=== PATIENT | female | born 1995 | race Caucasian/White ===

== ENCOUNTER 2016-07-30 12:36 | Day surgery (SDC) | payer OTHER ==
[2016-07-30] VITALS (9 sets, daily range): BP systolic 104–127; BP diastolic 60–83; PULSE 67–117; RESP 13–21; O2SAT 97–100
[~2016-07-30] VITALS: Ht 160 cm; Wt 69.5 kg
[~2016-07-30 12:36] MED LIST: Lactated Ringer's 1,000 ML IV SCH
[2016-07-30] MEDS ORDERED: fentaNYL-PF 50 mCg/mL 2 mL Inj ONE ×2 (12:37→19:01)
[2016-07-30] MEDS ORDERED: Propofol 10,000 mCg/mL 20 mL Inj ONE (12:37)
[2016-07-30] MEDS ORDERED: Dexamethasone 4 mg/mL Inj ONE (12:37)
[2016-07-30] MEDS ORDERED: Ondansetron 2 mg/mL 2 mL Inj ONE (12:37)
[2016-07-30] MEDS ORDERED: Lactated Ringer's 1,000 ML IV ONE ×2 (13:30→19:36)
[2016-07-30] MEDS ORDERED: NO HOME MEDICATIONS (14:16)
[2016-07-30 14:25] LABS: BASOPHILS % (AUTO) 0.4 % (0-3); EOSINOPHILS % (AUTO) 2.1 % (0-5); MONOCYTES % (AUTO) 8.3 % (4-12); Mean Corpuscular Hemoglobin 31.6 pg (27.0-35.0); Mean Corpuscular Volume 92.2 fL (81-100); NEUTROPHILS % (AUTO) 45.7 % (40-74); Platelet Count 238 bil/L (150-400)
--- NOTE | 2016-07-30 17:03 | PCM.HPANE ---
Patient Data Surgeon Admitting Provider: Attending Provider:Carmela Gutiérrez MD Primary Care Physician:Facundo Tracy MD Other Provider:[facility] Reason for Visit Bartholin Cyst Ht/WT & BMI Height (Feet): 5 Height (Inches): 3 Weight (Kilograms): 69.5 Body Mass Index 27.00 Allergies Coded Allergies: No Known Allergies (Verified Allergy, Unknown, 07/30/16) Diabetes History Hx Diabetes?: No MRSA MRSA: No Medications Home Meds Incl Beta Desmond: No Reported Medications [No Home Medications] No Conflict Check 07/30/16 Discontinued Reported Medications Sertraline HCl (Sertraline)50 Mg [id number] Mg PO DAILY 30 Days Ref 0 01/03/15 History History of ENT Problems?: No Hx of Heart Problems?: No Cardiovascular History: Denies:: Congestive Heart Failure Hypertension Hx of Respiratory Problem?: No Respiratory History: Denies:: Tuberculosis Hx Neurologic Problems?: No Hx of GI Problems?: No Other Pertinent History: BARTHOLINS CYST ON THE LEFT SIDE Female Hx: Denies:: Currently Hx Musculoskeletal Problems?: No Musculoskeletal History: Positive for:: Musculoskeletal Trauma (RIGHT ARM FX, TOE FX) Hx Surgeries?: No Hx Any Other Health Problems?: No Other History: Denies:: Cancer Hx Diabetes: No Hx Alcohol Use: Yes (ON OCCASION)Hx Substance Use: Yes (DAILY WILL NOT DO THE DAY SURGERY) Smoking Status: Current Some Day Smoker Have You Smoked inLast 12 mo: No Stop/Bang S-Snoring: Do You Snore Loudly: No T-Tired: feel tired, fatigued: Yes O-Obsered: Observed not breath: No P-Blood Pressure: treated: No B- Body Mass Index > 35 kg/m2: No A- Age over 50: No N- Neck Large Circumference: No G- Gender Male: No KOKO Total Score: 1 KOKO Risk Assessment: Low Risk, <3 Yes Risk Assessment Category Category 1A: Patient has history of documented sleep apnea, and HAS NOT received any narcotic, sedative or anesthesia administration during this stay. Category 1B: Patient has history of documented sleep apnea, and HAS received any narcotic , sedative or anesthesia administration during this stay Category 2: Patient has SUSPECTED Obstructive Sleep Apnea, and HAS received any narcotic , sedative or anesthesia administration during this stay. Category 3: Patient has SUSPECTED Obstructive Sleep Apnea and HAS NOT received narcotic, sedative or anesthesia administration during this stay. Category 4: Outpatient in Procedural Areas with known sleep apnea or who screen positive for High Risk via the STOP/BANG questionnaire. Exam Exam Vital Signs Vital Signs Date Time Temp Pulse Resp B/P Pulse Ox O2 Delivery O2 Flow Rate FiO2 07/30/16 13:30 36.8 71 16 104/60 98 Room Air General Appearance: Alert, Oriented X3, Cooperative, No Acute Distress HEENT/AIRWAY: MP 2 Lungs: Clear to Auscultation, Normal Air Movement Heart: Exam Unremarkable, Regular Rate/Rhythm, No Murmurs/Rubs/Gallops Meds/Labs/Diagnostics Admission Meds Current Medications Lactated Ringer's (Lr) 1,000 ml @ ud STK-MED ONCE IV Last administered on 07/30t 13:30; Start 07/30/16 at 13:30; Stop 07/30/16 at 14:08; Status DC Labs Test 07/30/16 13:45 White Blood Count 7.7th/mm3 (3.8-10.1) Red Blood Count 4.24mil/mm3 (3.90-5.20) Hemoglobin 13.4g/dL (12.0-15.6) Hematocrit 39.1% (35.0-46.0) Mean Corpuscular Volume 92.2fL (81-100) Mean Corpuscular Hemoglobin 31.6pg (27.0-35.0) Mean Corpuscular Hemoglobin Concent 34.3% (32.0-37.0) Red Cell Distribution Width 12.3% (12.3-15.4) Platelet Count 238bil/L (150-400) Neutrophils (%) (Auto) 45.7% (40-74) Lymphocytes (%) (Auto) 43.5% (14-46) Monocytes (%) (Auto) 8.3% (4-12) Eosinophils (%) (Auto) 2.1% (0-5) Basophils (%) (Auto) 0.4% (0-3) Plan Impression Patient chart reviewed, patient interviewed and anesthestic plan with risks, benefits, and alternatives discussed, and informed consent obtained. NPO Status: 2200 ASA Physical Status: ASA1 Normal Healthy Bene/Risks/Altern/Consents: Yes HP Complete Prior to Induction: Yes Emiliano Adnrea MD Jul 30, 2016 17:03
[2016-07-30] MEDS ORDERED: Lactated Ringer's 500 ML IV PRN (17:33)
[2016-07-30] MEDS ORDERED: Lactated Ringer's 1,000 ML IV SCH (17:33)
[2016-07-30] MEDS ORDERED: Atropine 0.4 mg/mL Inj IVPUSH PRN (17:35)
[2016-07-30] MEDS ORDERED: EPHEDrine Sulfate 50 mg/mL Inj IVPUSH PRN (17:35)
[2016-07-30] MEDS ORDERED: Ondansetron 2 mg/mL 2 mL Inj IVPUSH PRN ×2 (17:35→18:55)
[2016-07-30] MEDS ORDERED: Labetalol 5 mg/mL 4 mL Inj IV PRN (17:35)
[2016-07-30] MEDS ORDERED: HYDROmorphone 1 mg/mL Inj IVPUSH PRN ×2 (17:35→18:55)
[2016-07-30] MEDS ORDERED: MetoCLOpramide 5 mg/mL 2 mL Inj IVPUSH PRN ×2 (17:35→18:55)
[2016-07-30] MEDS ORDERED: Phenylephrine 10,000 mCg/mL Inj IVPUSH PRN (17:35)
[2016-07-30] MEDS ORDERED: Dexamethasone 4 mg/mL Inj IVPUSH PRN (17:35)
[2016-07-30] MEDS ORDERED: hydrALAZINE 20 mg/mL Inj IVPUSH PRN (17:35)
[2016-07-30] MEDS ORDERED: Lidocaine 1%-Epi 1:100,000 20 mL Inj INFILTRATE ONE (17:46)
[2016-07-30] MEDS ORDERED: oxyCODONE-Acetamin 5-325 mg Tablet PO PRN (18:55)
[2016-07-30] MEDS ORDERED: diphenhydrAMINE 25 mg Capsule PO PRN (18:55)
--- NOTE | 2016-07-30 18:56 | PCM.DIGYN ---
Surgical Discharge Instruction Dates of Hospitalization Date of Hospital Admission Providers Admitting Physician: Primary Care Physician: Facundo Tracy MD Attending Physician: Carmela Gutiérrez MD Diagnosis at Time of Discharge Diagnosis at time of discharge Recurrent Bartholin's cyst, skene's duct abscess Problems: Diet Discharge Diet: No restrictions Activity Discharge Activity-General: Try not to overdue, Be up and about, Balance rest and activity, Activity as pain allows, No lifting >15 pounds for 2 weeks, No driving while taking narcotic Dressing and Incisional Care Hygiene: May shower, NO bathtub, hot tub or whirlpool Additional Instructions Discharge Instructions You have had a removal of your recurrent Bartholin's duct cyst and drainage of a Mo[place]'s duct abscess. Surgery was uncomplicated. Please call with severe pain, signs of infection including fever, chills or malodorous vaginal discharge or heavy vaginal bleeding. Follow Up Plan Follow-up appointment: Weeks (2) Call your provider for: Fever, Chills, Shortness of breath, Vomitting, Heavy vaginal bleeding, Increasing pain Carmela Gutiérrez MD Jul 30, 2016 18:56
[2016-07-30] MEDS: fentaNYL-PF 50 mCg/mL 2 mL Inj IVPUSH PRN ×2 (19:05→19:07)
--- NOTE | 2016-07-30 19:17 | PCM.ANEP1 ---
Post Anesthesia Phase 1 PACU Phase 1 Assessment Vital Signs Vital Signs Date Time Temp Pulse Resp B/P Pulse Ox O2 Delivery O2 Flow Rate FiO2 07/30/16 18:55 101 18 122/80 98 Room Air 07/30/16 18:50 36.8 117 21 123/79 100 Simple Mask 4 07/30/16 13:30 36.8 71 16 104/60 98 Room Air Anesthetic Administered: GA Level of Alertness: Awake, talking GRACE's with Equal Strength: Yes Pain: No Nausea or Vomiting: No Oxygen Delivery: Simple Mask Lungs: Clear to Auscultation, Normal Air Movement Emiliano Andrea MD Jul 30, 2016 19:16
--- NOTE | 2016-07-30 19:17 | PCM.ANEP2 ---
Post Anesthesia Evaluation ASA/CMS Post Anesthesia VS in Patient's Normal Range?: Yes Resp Stable; Airway Patent?: Yes CV Function & Hydration Stable: Yes Mental Status Recovered?: Yes Pain control Satisfactory?: Yes N/V Control Satisfactory?: Yes Emiliano Andrea MD Jul 30, 2016 19:17
[2016-07-30] MEDS ORDERED: hydrOXYzine Inj 25 MG/1 mL SDV IM ONE ×2 (19:20)
--- NOTE | 2016-07-31 02:21 | OP ---
[address] [address] OPERATIVE REPORT PATIENT: RAGINI APARICIO : 1995 MR#: [id number] ADMIT: 07/30/2016 JOB ID: [id number] DATE OF SURGERY: 07/30/2016 PREOPERATIVE DIAGNOSIS(ES): 1. Recurrent left Bartholin gland cyst. 2. [place]'s duct cyst. POSTOPERATIVE DIAGNOSIS(ES): 1. Recurrent left Bartholin gland cyst. 2. [place]'s duct abscess. PROCEDURE: Removal of left Bartholin's cyst and drainage of right [place]'s duct abscess. SURGEON: Carmela Gutiérrez MD. MESS ATTENDANT CREW: Josiah Oliva who was necessary for retraction, as well as a proctoring purposes. ANESTHESIA: LMA. ESTIMATED BLOOD LOSS: 75 cc. FLUID REPLACEMENT: 1 L of crystalloid. URINE OUTPUT: She was straight catheterized at the start of procedure. FINDINGS: Left Bartholin's cyst and right [place]'s duct abscess. COMPLICATIONS: None apparent. INDICATIONS: This is a 20-year-old female, who presented to our gynecology clinic complaining of recurrent Bartholin's cyst which have required multiple visits to the emergency department over the last year for drainage. When I initially saw her in clinic, she had recently seen emergency department physician and did not have any drainable cyst at that time. However shortly following that clinic visit, she did have a recurrence and again presents to the emergency department, at which point she returned to clinic requesting definitive treatment and removal of her cyst. Additionally she did have an asymptomatic [place]'s duct cyst that she was requesting drainage of as well. After discussing risks, benefits, and alternatives with her in our clinic, she did elect to proceed. SURGERY: The patient was placed in dorsal lithotomy position, prepped and draped in usual sterile fashion after LMA anesthesia was administered. Examination of the perineum showed a left Bartholin's gland cyst as well as the [place]'s duct cyst. After injection with lidocaine with epinephrine along the outer mucosal edge of the Bartholin's cyst, an incision was made with a 15 blade scalpel until reaching the cyst wall. Using both blunt and sharp dissection, the cyst was then shelled out from the vaginal tissue until reaching the pubic ramus. During the cyst dissection, the cyst was ruptured with return of mucoid material. Dissection was then continued until what was thought to be the base of the mass was reached and a pursestring suture using 0-Vicryl was then started around what was thought to be the base of the cyst to try to prevent any issues with bleeding. After this was completed, the cyst was then sharply excised and examination of the cyst wall revealed that a portion of the cyst was left behind and was likely underneath the pursestring, so the cyst wall that was remaining was then sharply dissected until the inferior posterior edge of the cyst wall was completely excised. There was noted to be a moderate amount of bleeding following excision and so several interrupted and [id number] sutures using 2-0 Vicryl and 0-Vicryl were needed to achieve hemostasis. Electrocautery was also used toward this end. After hemostasis was achieved, several interrupted stitches were used of 2-0 Vicryl to reapproximate the space that was remaining after her cyst was removed and FloSeal was then placed to aid in hemostasis. After obliterating this empty space, the mucosa was then closed with vertical mattress sutures in an interrupted fashion. Two simple interrupted stitches were placed at the inferior portion of the incision as well to aid in hemostasis. Next, attention was then turned to the right [place]'s cyst. After injection with local anesthetic, this was incised sharply and drainage of a moderate amount of purulent discharge was completed, effectively reducing the cyst. FloSeal was then placed at the incision site and hemostasis of the cyst was noted as well. Premarin cream was placed topically following this and good hemostasis was achieved by the completion of the procedure. The patient tolerated procedure well and recovered in PACU. CHAY
--- NOTE | 2016-08-01 14:38 | PATH ---
SURGICAL PATHOLOGY Attending Physician:Carmela Gutiérrez, CASE STATUS: Signed Out PATIENT NAME: RAGINI APARICIO PID: [id number] : 1995 DATE COLLECTED:07/30/2016 00:00 SPECIMEN: Bartholin's Gland, Cyst CLINICAL HISTORY: A: BARTHOLIN CYST FINAL DIAGNOSIS: 1.SPECIMEN DESIGNATED BARTHOLIN CYST: BENIGN INFLAMMATORY CYST CONSISTENT WITH BARTHOLIN GLAND CYST, NEGATIVE FOR ATYPIA. ICD10 CODE N75.0 GROSS DESCRIPTION: The specimen is received in one formalin filled container labeled with the patient's name, sublabeled "Bartholin cyst" and consists of 2 light pickard portions of tissue. The first measures 0.9 0.5 x 0.5 CM the second measures 1.6 x 1.0 x 2.0 CM. The specimen is inked blue. 3 development representative sections are submitted in 2 cassettes. 07/31/2016 DAC MICRO DESCRIPTION: See diagnosis. ICD-9 CODES: CPT CODES: 1: 87229 Electronically Signed Out Chinedu Liu MD [facility] Pathology [facility] [address], [place] [address] Technical component performed at [facility], [facility] [address], [place], [address]
== END 2016-07-30 23:59 | disposition home or self-care (01) ==
LOC: SAS 12:36
PROVIDERS: ATTEND Obstetrics & Gynecology
DX: N75.0 Cyst of Bartholin's gland (principal); N34.0 Urethral abscess; F17.210 Nicotine dependence, cigarettes, uncomplicated
CPT/HCPCS: 36415; 53060; 56740; 85025; J1100; J2250; J2405; J3410; J7120